=== PATIENT | female | born 1980 | race Two or more races ===

== ENCOUNTER 2020-01-15 07:45 | Inpatient (IN) | payer OTHER ==
[~2020-01-15] VITALS: Ht 177.8 cm; Wt 3.6 kg
[2020-01-15] MEDS ORDERED: PRENAT PO (09:37)
[2020-01-15] MEDS ORDERED: IRON PO (09:37)
[2020-01-17] MEDS ORDERED: FEOSOL325 MG (15:38)
[2020-01-17] MEDS ORDERED: FOLIC ACID1 MG PO (15:38)
[2020-01-17] MEDS ORDERED: PRENATAL + DHA1 EAC1 (15:39)
[2020-01-18] MEDS ORDERED: KEFLEX500 MG (15:56)
== END 2020-01-20 11:45 | disposition home or self-care (01) | DRG 785 ==
LOC: OB/GYN 01-17 07:45 → O/R 01-17 09:22 → OB/GYN 01-17 12:00
PROVIDERS: ADMIT Obstetrics & Gynecology; ATTEND Obstetrics & Gynecology
PROC: 0UB70ZZ Excision of Bilateral Fallopian Tubes, Open Approach (ICD-10-PCS; 2020-01-17)
PROC: 4A1HXFZ Monitoring of Products of Conception, Cardiac Rhythm, External Approach (ICD-10-PCS; 2020-01-17)
PROC: 3E033VJ Introduction of Other Hormone into Peripheral Vein, Percutaneous Approach (ICD-10-PCS; 2020-01-17)
PROC: 10D00Z1 Extraction of Products of Conception, Low, Open Approach (ICD-10-PCS; principal; 2020-01-17 12:00)
DX: O82 Encounter for cesarean delivery without indication (principal); O34.211 Maternal care for low transverse scar from previous cesarean delivery; O99.824 Streptococcus B carrier state complicating childbirth; Z3A.39 39 weeks gestation of pregnancy; Z37.0 Single live birth; Z30.2 Encounter for sterilization

== ENCOUNTER 2020-01-27 21:07 | Emergency (ER) | payer OTHER ==
[~2020-01-27] VITALS: Ht 177.8 cm; Wt 83.5 kg
[~2020-01-27 21:07] MED LIST: FEOSOL325 MG; FOLIC ACID1 MG PO; IRON PO; KEFLEX500 MG; PRENAT PO; PRENATAL + DHA1 EAC1
== END 2020-01-28 00:15 | disposition home or self-care (01) ==
LOC: ER 21:07
DX: D25.2 Subserosal leiomyoma of uterus (principal); N93.8 Other specified abnormal uterine and vaginal bleeding